=== PATIENT | male | born 1950 | race Caucasian/White ===

== ENCOUNTER → 2016-04-13 | Outpatient (CLI) | payer BC | END | disposition home or self-care (01) | LOC: GMAL 10:36 | PROVIDERS: ATTEND Family Medicine | DX: Z12.5 Encounter for screening for malignant neoplasm of prostate (principal) ==

== ENCOUNTER → 2018-01-01 | Outpatient (CLI) | payer MEDICARE, OTHER | LOC: GMAL 14:37 | PROVIDERS: ATTEND Family Medicine | DX: D51.3 Other dietary vitamin B12 deficiency anemia (principal); R53.83 Other fatigue; E55.9 Vitamin D deficiency, unspecified ==

== ENCOUNTER 2019-05-19 15:18 | Emergency (ER) | payer MEDICARE, OTHER ==
[2019-05-19] MEDS ORDERED: cefTRIAXone SODIUM 1 GM VIAL IM ONE (16:19)
[2019-05-19] MEDS ORDERED: CIPROFLOXACIN 500 MG TAB PO ONE (16:19)
[2019-05-19] MEDS ORDERED: LIDOCAINE 1% 2 ML VIAL INJ ONE (16:26)
--- NOTE | 2019-05-19 17:24 | CT ---
EXAM DESCRIPTION: Abdoment/Pelvis w/o Contrast: Computed Tomography. CLINICAL HISTORY: 69 years Male urinary frequency, uti, hx kidney stones COMPARISON: None. TECHNIQUE: Spiral-axial scans 2.5 x 2.5 mm intervals through the abdomen and pelvis without oral or IV contrast. Coronal and sagittal 2.0 mm reconstructions. Total Exam DLP: 1306 mGy-cm. This exam was performed according to our departmental CT dose-optimization program which includes automated exposure control, adjustment of the mA and/or kV according to patient size and/or use of iterative reconstruction technique; to reduce radiation dose to as low as reasonably achievable (ALARA). FINDINGS: Kidneys and Ureters: Multiple small stones, approximately 4, measuring 2 mm or less in the upper collecting system. 2 to 3 mm stones in the inferior collecting system. The largest stone measures 5.8 mm in the middle collecting system bilaterally no hydronephrosis. Perirenal thickening. Atherosclerotic calcifications. 1 cm cyst in the upper collecting system. Multiple stones 2 mm in diameter less in the upper and lower collecting systems. Largest measures 4.6 mm in the inferior collecting system is below the hilum. No obstruction or hydronephrosis. Cyst in the upper pole and lower pole. Lateral pararenal fascial thickening and minimal stranding. Bilateral ureters normal caliber and no radiodense stones. Mesentery: Perirenal strandy changes as described. No free fluid or free air. Pelvic Organs: Ureterovesical junctions are unremarkable. Bladder slightly contracted with wall thickening. No radiodense stones. Prostate gland is abutting the base of the urinary bladder measuring 5.6 x 4.2 cm. Lung bases and pleura: Negative. Liver, stomach, spleen, and adrenal glands: Unremarkable. Pancreas, Gallbladder, and Ducts: Negative. Aorta: Moderate atherosclerotic calcification with several levels of lumen and wall calcifications. Small Bowel: Unremarkable. Terminal Ileum/Cecum: Negative including appendix. No inflammatory changes. Colon: No significant distention. Minimal fecal matter in the distal colon and sigmoid with minimal redundancy of the sigmoid. Spine and Bony Pelvis: Minimal spondylosis thoracic spine. No lytic or blastic lesions. Minimal sclerosis abutting the SI joint facets. Minimal subchondral sclerosis in the acetabula bilaterally and marginal spurs. Previous biopsy negative right iliac crest. Abdominal Wall/Back Soft Tissues: Small left fatty inguinal hernia not containing bowel. IMPRESSION: Multiple bilateral kidney stones. Most of the stones are 3 mm or less. Largest on the left 5.8 mm and largest on the right is 4.6 mm. No hydronephrosis bilaterally. No stones or hydroureter bilaterally. No radiodense stones in the urinary bladder. Prostate gland is enlarged impressing on the base of the urinary bladder. Electronically signed by: Korey Hoover MD 05/19/2019 5:23 PM CDT
[2019-05-19 18:47] VITALS: O2SAT 94
--- NOTE | 2019-05-19 18:49 | ED.PDOC ---
History of Present Illness - General Chief Complaint: Problem Stated Complaint: "trouble urinating" Time Seen by Provider: 05/19/19 15:26 Source: patient Exam Limitations: no limitations - History of Present Illness Initial Comments: The patient is a 69-year-old male presenting to the emergency room secondary to urinary frequency and dysuria along with some mild generalized body aches and low-grade fevers for the last 3 or 4 days. He does have known BPH and does take Flomax. No chest pain or shortness of breath. No edema. No history of renal failure though he does have a history of kidney stones in the past. No syncope or near syncope. Vital signs are reassuring. Timing/Duration: other - 4 days Severity: moderate Improving Factors: nothing Worsening Factors: nothing Associated Symptoms: fever/chills, malaise Allergies/Adverse Reactions: Allergies SHIRA Inhibitors Allergy (Verified 05/19/19 15:36) Home Medications: Ambulatory Orders Amlodipine Besylate 10 mg PO DAILY 05/19/19 Aspirin [Aspirin EC] 81 mg PO DAILY 05/19/19 Carvedilol 3.125 mg PO BID 05/19/19 Cephalexin Monohydrate [Keflex] 500 mg PO Q8H #45 cap 05/19/19 Choline Fenofibrate [Fenofibric Acid Dr] 1 tablet PO DAILY 05/19/19 Ciprofloxacin [Cipro] 500 mg PO BID #60 tab 05/19/19 Clopidogrel Bisulfate [Plavix] 1 tablet PO DAILY 05/19/19 Glipizide 1 tablet PO BID 05/19/19 Losartan Potassium 50 mg PO BID 05/19/19 Potassium Chloride [K-Tab] 10 meq PO DAILY 05/19/19 Saxagliptin HCl [Onglyza] 5 mg PO DAILY 05/19/19 Simvastatin 8 mg PO BEDTIME 05/19/19 Tamsulosin [Flomax] 2 tablet PO DAILY 05/19/19 metFORMIN HCL [Glucophage] 1,000 mg PO BID 05/19/19 Review of Systems - Review of Systems Constitutional: States: fever, malaise EENTM: States: no symptoms reported Respiratory: States: no symptoms reported Cardiology: States: no symptoms reported Gastrointestinal/Abdominal: States: no symptoms reported Genitourinary: States: dysuria, frequency Musculoskeletal: States: no symptoms reported Skin: States: no symptoms reported Neurological: States: no symptoms reported Endocrine: States: no symptoms reported All other Systems: No Change from Baseline Past Medical History (General) - Patient Medical History Hx of COPD: Yes Hx Congestive Heart Failure: Yes Hx Hypertension: Yes Surgical History: coronary bypass surgery - Vaccination History Hx Tetanus, Diphtheria Vaccination: Yes Hx Influenza Vaccination: Yes Hx Pneumococcal Vaccination: No - Social History Hx Alcohol Use: Yes - Activities of Daily Living Hospice Agency (if applicable):: None - Female History Patient is a Female of Child Bearing Age (10 -59 yrs old): No Patient : No - Triage Comment ED Triage Comment: pt voices trouble urinating the past 4-5 days. has hx of kidney stones Family Medical History - Family History Mother Family History: Unknown Physical Exam - Physical Exam General Appearance: Alert, No apparent distress Eye Exam: bilateral normal Ears, Nose, Throat: hearing grossly normal, normal ENT inspection, normal pharynx Neck: full range of motion, supple Respiratory: lungs clear, normal breath sounds, no respiratory distress, no accessory muscle use Cardiovascular/Chest: normal peripheral pulses, regular rate, rhythm, no edema Peripheral Pulses: radial,right: 2+, radial,left: 2+ Gastrointestinal/Abdominal: non tender, soft Rectal Exam: deferred Back Exam: no CVA tenderness, no vertebral tenderness Extremity: normal range of motion, non-tender, normal inspection, no pedal edema, normal capillary refill 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 as tested, alert, normal mood/affect, oriented x 3 Skin Exam: normal color Comments: Vital Signs - 24 hr 05/19/19 05/19/19 05/19/19 15:34 15:42 16:30 Temperature 98.6 F 99.8 F H Pulse Rate [ 75 75 82 brachial] Respiratory 18 18 18 Rate Blood Pressure 153/73 133/70 [Left Arm] O2 Sat by Pulse 93 L 93 L Oximetry 05/19/19 05/19/19 17:00 18:00 Temperature 99.8 F H 100.2 F H Pulse Rate [ 78 84 brachial] Respiratory 18 18 Rate Blood Pressure 147/61 144/62 [Left Arm] O2 Sat by Pulse 94 L 94 L Oximetry Progress - Progress Progress: 05/19/19 18:49 The patient is a 69-year-old male presented emergency room with symptoms of prostatitis. The patient is going to be placed on a month worth of ciprofloxacin and 2 weeks worth of Keflex. Urine is being cultured. Vital signs are stable at this time. Obviously if the patient is worsening in any way that he needs to return to the emergency room. By ultrasound he is retaining approximately 60 cc of urine after urinating. This does not appear to be affecting his kidney function however if he gets to where he cannot urinate then a Stevens catheter will have to be placed. ER warnings are given. cuco nicole 747 - Results/Orders Results/Orders: CT scan of the abdomen pelvis shows multiple stones in the kidneys but no evidence of any obstructing ureteral stones. No obvious abscesses. See report for details. He does have an enlarged prostate. Laboratory Tests 05/19/19 05/19/19 05/19/19 15:47 15:50 15:50 WBC 10.5 RBC 4.02 L Hgb 12.4 L Hct 37.0 L MCV 92.2 MCH 30.8 MCHC 33.4 RDW 14.7 H Plt Count 196 MPV 10.0 Absolute Neuts (auto) 8.00 H Absolute Lymphs (auto) 1.50 Absolute Monos (auto) 0.80 Absolute Eos (auto) 0.20 Absolute Basos (auto) 0.10 Neutrophils % 76.2 Lymphocytes % 13.9 L Monocytes % 7.8 Eosinophils % 1.5 Basophils % 0.6 Sodium 135 Potassium 4.2 Chloride 101 Carbon Dioxide 24 Anion Gap 14.2 BUN 19 H Creatinine 1.13 BUN/Creatinine Ratio 16.8 Random Glucose 224 H Serum Osmolality 279.3 Calcium 9.3 Total Bilirubin 0.4 AST 15 ALT 13 Alkaline Phosphatase 41 L Serum Total Protein 7.0 Albumin 3.4 Globulin 3.6 H Albumin/Globulin Ratio 0.9 L Total PSA Urine Color Yellow Urine Appearance Clear Urine pH 5.5 Ur Specific [place] >= 1.030 Urine Protein >=300 H Urine Glucose (UA) 100 H Urine Ketones Negative Urine Blood Negative Urine Nitrite Negative Urine Bilirubin Negative Urine Urobilinogen 0.2 Ur Leukocyte Esterase Trace H Urine RBC 1-3 Urine WBC 5-10 H Ur Epithelial Cells 1-3 Urine Bacteria 2+ H Urine Mucus Large 05/19/19 15:50 WBC RBC Hgb Hct MCV MCH MCHC RDW Plt Count MPV Absolute Neuts (auto) Absolute Lymphs (auto) Absolute Monos (auto) Absolute Eos (auto) Absolute Basos (auto) Neutrophils % Lymphocytes % Monocytes % Eosinophils % Basophils % Sodium Potassium Chloride Carbon Dioxide Anion Gap BUN Creatinine BUN/Creatinine Ratio Random Glucose Serum Osmolality Calcium Total Bilirubin AST ALT Alkaline Phosphatase Serum Total Protein Albumin Globulin Albumin/Globulin Ratio Total PSA 51.49 H Urine Color Urine Appearance Urine pH Ur Specific [place] Urine Protein Urine Glucose (UA) Urine Ketones Urine Blood Urine Nitrite Urine Bilirubin Urine Urobilinogen Ur Leukocyte Esterase Urine RBC Urine WBC Ur Epithelial Cells Urine Bacteria Urine Mucus CT scan of abdomen pelvis show numerous small kidney stones but none obstructing the ureters. No significant hydronephrosis. Departure - Departure Clinical Impression: Prostatitis Qualifiers: Prostatitis type: acute Qualified Code(s): N41.0 - Acute prostatitis Disposition: Discharge to Home or Self Care Departure Forms: ED Discharge - Pt. Copy, Patient Portal Self Enrollment Instructions: Prostatitis (DC) Diet: diabetic diet Activity: increase activity as tolerated Referrals: Nav Solorio III, MD [Primary Care Provider] - 1-2 Weeks Prescriptions: Cephalexin Monohydrate [Keflex] 500 mg PO Q8H #45 cap Ciprofloxacin [Cipro] 500 mg PO BID #60 tab Home Medications: Ambulatory Orders Amlodipine Besylate 10 mg PO DAILY 05/19/19 Aspirin [Aspirin EC] 81 mg PO DAILY 05/19/19 Carvedilol 3.125 mg PO BID 05/19/19 Cephalexin Monohydrate [Keflex] 500 mg PO Q8H #45 cap 05/19/19 Choline Fenofibrate [Fenofibric Acid Dr] 1 tablet PO DAILY 05/19/19 Ciprofloxacin [Cipro] 500 mg PO BID #60 tab 05/19/19 Clopidogrel Bisulfate [Plavix] 1 tablet PO DAILY 05/19/19 Glipizide 1 tablet PO BID 05/19/19 Losartan Potassium 50 mg PO BID 05/19/19 Potassium Chloride [K-Tab] 10 meq PO DAILY 05/19/19 Saxagliptin HCl [Onglyza] 5 mg PO DAILY 05/19/19 Simvastatin 8 mg PO BEDTIME 05/19/19 Tamsulosin [Flomax] 2 tablet PO DAILY 05/19/19 metFORMIN HCL [Glucophage] 1,000 mg PO BID 05/19/19 Additional Instructions: The patient is a 69-year-old male presented emergency room with symptoms of prostatitis. The patient is going to be placed on a month worth of ciprofloxacin and 2 weeks worth of Keflex. Urine is being cultured. Vital signs are stable at this time. Obviously if the patient is worsening in any way that he needs to return to the emergency room. By ultrasound he is retaining approximately 60 cc of urine after urinating. This does not appear to be affecting his kidney function however if he gets to where he cannot urinate then a Stevens catheter will have to be placed. The patient should hold his cholesterol medications while taking the antibiotics. ER warnings are given.
[2019-05-19 19:09] VITALS: BP 139/76; TEMP 99.7
== END 2019-05-19 19:09 | disposition home or self-care (01) ==
LOC: ER 15:18
DX: N41.0 Acute prostatitis (principal); N20.0 Calculus of kidney; N40.1 Benign prostatic hyperplasia with lower urinary tract symptoms; J44.9 Chronic obstructive pulmonary disease, unspecified; I50.9 Heart failure, unspecified; I11.0 Hypertensive heart disease with heart failure; Z95.1 Presence of aortocoronary bypass graft; Z79.899 Other long term (current) drug therapy; Z79.82 Long term (current) use of aspirin; Z79.84 Long term (current) use of oral hypoglycemic drugs; Z88.8 Allergy status to other drugs, medicaments and biological substances
CPT/HCPCS: 36415; 74176; 80053; 81001; 85025; 87040; G0103; J0696

== ENCOUNTER → 2019-06-27 | Outpatient (CLI) | payer MEDICARE, OTHER | LOC: GMAL 10:38 | PROVIDERS: ATTEND Family Medicine | DX: D51.3 Other dietary vitamin B12 deficiency anemia (principal); E11.9 Type 2 diabetes mellitus without complications; E55.9 Vitamin D deficiency, unspecified; E78.49 Other hyperlipidemia; R53.83 Other fatigue; Z12.5 Encounter for screening for malignant neoplasm of prostate; Z79.899 Other long term (current) drug therapy | CPT/HCPCS: 82306; 82607; 84443; G0103 ==

== ENCOUNTER 2020-02-07 20:58 | Emergency (ER) | payer MEDICARE, OTHER ==
[2020-02-07] MEDS ORDERED: IPRATROPIUM/ALBUTEROL 3 ML VIAL NEB ONE ×4 (21:00→21:30)
[2020-02-07] MEDS ORDERED: ALBUTEROL SULFATE 2.5 MG/3 ML VIAL NEB ONE (21:11)
[2020-02-07] MEDS ORDERED: MAGNESIUM SULFATE PREMIX 2GM 50 ML IVPB ONE (21:14)
[2020-02-07] MEDS ORDERED: FUROSEMIDE INJ 40 MG/4 ML VIAL ONE (21:18)
[2020-02-07] MEDS ORDERED: MAGNESIUM SULFATE PREMIX 2GM 2 GM in PREMIX BAG 1 BAG IVPB ONE (21:20)
[2020-02-07] MEDS ORDERED: methylPREDNISolone SODIUM SUC 125 MG/2 ML VIAL IV ONE (21:20)
[2020-02-07] MEDS ORDERED: SODIUM CHL 0.9% 50ML VIAL 3 ML, ALBUTEROL SULFATE NEBS 15 MG NEB ONE ×2 (21:21)
[2020-02-07] MEDS ORDERED: IPRATROPIUM BROMIDE NEBS 0.5 MG/2.5 ML VIAL NEB ONE (21:21)
[2020-02-07] MEDS ORDERED: ALBUTEROL SULFATE NEBS 15 MG, IPRATROPIUM BROMIDE NEBS 0.5 MG NEB ONE ×2 (21:21)
[2020-02-07] MEDS ORDERED: SUCCINYLCHOLINE CHLORIDE 200 MG/10 ML VIAL ONE (21:36)
[2020-02-07] MEDS ORDERED: SODIUM CHLORIDE 0.9% 1000ML 1,000 ML ONE ×2 (21:42→22:49)
[2020-02-07] MEDS ORDERED: ETOMIDATE INJECTION 2 MG/ML 20ML VIAL IV ONE (21:46)
[2020-02-07] MEDS ORDERED: fentaNYL CITRATE INJ 50 MCG/ML 2 ML AMP IV ONE (21:49)
[2020-02-07] MEDS ORDERED: MIDAZOLAM INJ 5 MG/5 ML VIAL ONE (21:50)
--- NOTE | 2020-02-07 22:08 | RAD ---
EXAM DESCRIPTION: Chest,1 View CLINICAL HISTORY: SOB COMPARISON: Report from 05/21/2018 FINDINGS: Single frontal radiograph view of the chest. Cardiomediastinal silhouette: Prior median sternotomy. Cardiomegaly. Lungs: Pulmonary vascular congestion. Bilateral interstitial opacities. No pneumothorax. Possible small bilateral pleural effusions. Bones: Degenerative change of the spine and shoulders. Upper abdomen: No abnormality identified. IMPRESSION: 1. Cardiomegaly with interstitial pulmonary edema pattern. Electronically signed by: Maximo Jensen 02/07/2020 10:07 PM [facility]
--- NOTE | 2020-02-07 22:10 | RAD ---
EXAM DESCRIPTION: Chest,1 View CLINICAL HISTORY: ET Tube placement COMPARISON: 02/07/2020 FINDINGS: Single frontal view of the chest. Tubes and lines: Endotracheal tube with tip 5 cm above the carolann. Leads overlie the chest. Cardiomediastinal silhouette: Stable Lungs: Pulmonary vascular congestion with bilateral interstitial opacities. No pneumothorax. Costophrenic angles are not visualized on this study. Bones: Stable. Upper abdomen: Stable. IMPRESSION: 1. Endotracheal tube with tip in appropriate position 5 cm above the carolann. Stable appearance of the chest otherwise. Electronically signed by: Maximo Jensen 02/07/2020 10:08 PM [facility] [employer]
--- NOTE | 2020-02-07 22:14 | ED.PDOC ---
History of Present Illness - General Time Seen by Provider: 02/07/20 21:18 Source: patient, family - - History of Present Illness Initial Comments: PATIENT FEELING POORLY FOR SEVERAL DAYS WITH MILD RESPIRATORY SYMPTOMS, BUT DID NOT ALERT HIS TO SYMPTOMS UNTIL THIS EVENING WHEN HE DEVELOPED RAPIDLY PROGRESSIVE SHORTNESS OF BREATH. PATIENT W/ HISTORY OF ASCAD, COPD, HTN AND DM. S/P CABG 1994, NO CARDIAC ISSUES SINCE. CONTINUES TO SMOKE 2 PPD HOWEVER. RELATED THAT HE HAD NEVER HAD SYMPTOMS THIS SEVERE BEFORE. Timing/Duration: 1 week Severity: severe Activities at Onset: none Possible Cause: smoke exposure Improving Factors: nothing Worsening Factors: nothing Associated Symptoms: denies symptoms Allergies/Adverse Reactions: Allergies SHIRA Inhibitors Allergy (Verified 05/19/19 15:36) Home Medications: Ambulatory Orders Amlodipine Besylate 10 mg PO DAILY 05/19/19 Aspirin [Aspirin EC] 81 mg PO DAILY 05/19/19 Carvedilol 3.125 mg PO BID 05/19/19 Cephalexin Monohydrate [Keflex] 500 mg PO Q8H #45 cap 05/19/19 Choline Fenofibrate [Fenofibric Acid Dr] 1 tablet PO DAILY 05/19/19 Ciprofloxacin [Cipro] 500 mg PO BID #60 tab 05/19/19 Clopidogrel Bisulfate [Plavix] 1 tablet PO DAILY 05/19/19 Glipizide 1 tablet PO BID 05/19/19 Losartan Potassium 50 mg PO BID 05/19/19 Potassium Chloride [K-Tab] 10 meq PO DAILY 05/19/19 Saxagliptin HCl [Onglyza] 5 mg PO DAILY 05/19/19 Simvastatin 8 mg PO BEDTIME 05/19/19 Tamsulosin [Flomax] 2 tablet PO DAILY 05/19/19 metFORMIN HCL [Glucophage] 1,000 mg PO BID 05/19/19 Review of Systems - Review of Systems Unable to Obtain Due To: intubated, clinical condition Past Medical History (General) - Patient Medical History Hx of COPD: Yes Hx Congestive Heart Failure: Yes Hx Hypertension: Yes - Vaccination History Hx Tetanus, Diphtheria Vaccination: Yes Hx Influenza Vaccination: Yes Hx Pneumococcal Vaccination: No - Social History Hx Alcohol Use: Yes - Female History Patient : No Family Medical History - Family History Mother Family History: Unknown Physical Exam - Physical Exam General Appearance: Anxious, Frail, Obvious distress, Ill Appearing, Restless Eyes, Ears, Nose, Throat Exam: PERRL/EOMI, normal ENT inspection, TMs normal Neck: non-tender, full range of motion, supple Respiratory: respiratory distress, decreased breath sounds, accessory muscle use - MARKED, wheezing - EXPIRATORY Cardiovascular/Chest: normal peripheral pulses, no edema, no JVD, no murmur, tachycardia Gastrointestinal/Abdominal: normal bowel sounds, non tender, soft, no organomegaly Extremity: non-tender, normal inspection, no pedal edema, no calf tenderness Neurologic: alert Skin Exam: normal color, warm/dry Progress - Progress Progress: 02/07/20 22:16 DISCUSSED WITH THE PATIENT WHETHER HE WANTED TO BE INTUBATED AND THAT HE HAD IMPENDING RESPIRATORY FAILURE, HE UNDERSTOOD, VOICED UNDERSTANDING AND STATED HE DID WANT TO BE INTUBATED. PATIENT WITH RAPIDLY PROGRESSIVE RESPIRATORY FAILURE, APPREARING AT THIS TIME TO BE PRIMARILY DUE TO SEVERE EXACERBATION OF COPD, HOWEVER SOME HEART FAILURE COM PONENT IS POSSIBLE. 02/07/20 23:47 PATIENT FAMILY UPDATED MULTIPLE TIMES. [facility] CONTACTED OVER A PERIOD OF OVER AN HOUR, TENTATIVE BEDS FOUND AT [facility] IN [place] AND [facility] IN . FAMILY IS OK WITH EITHER, 02/07/20 23:58 ABG ON ER ADMIT: 7.14 85/82 POST INTUBATION: 7.27 CO2 54 O2 [address] FRITZ, MEDICINE WHO IS ACCEPTING, ALSO GIVEN TO ICU ATTENDING AND ICU APC. FAMILY ADVISED THAT [facility] IS ACCEPTING FACILITY. - EKG/XRAY/CT EKG: no ST T wave changes Xray Comments: INFILTRATE IN RIGHT MID LUNG FIELD. FLUID IN MINOR FISSURE. Procedures - Intubation Tube Size (cm): 7.5 Medications: Succinylcholine, Versed Breath Sounds after Intubation: equal Intubation Complications: no complications Post Intubation Xray: Yes Progress/Xray Impression: GOOD TUBE PLACEMENT CONFIRMED ON CHEST XRAY Departure - Departure Clinical Impression: COPD exacerbation Respiratory failure Qualifiers: Chronicity: acute Respiratory failure complication: hypoxia and hypercapnia Qualified Code(s): J96.01 - Acute respiratory failure with hypoxia Time of Disposition: 23:47 Disposition: Transfer to Hospital Departure Forms: ED Discharge - Pt. Copy, Patient Portal Self Enrollment Referrals: Nav Solorio III, MD [Primary Care Provider] - 1-2 Weeks Home Medications: Ambulatory Orders Amlodipine Besylate 10 mg PO DAILY 05/19/19 Aspirin [Aspirin EC] 81 mg PO DAILY 05/19/19 Carvedilol 3.125 mg PO BID 05/19/19 Cephalexin Monohydrate [Keflex] 500 mg PO Q8H #45 cap 05/19/19 Choline Fenofibrate [Fenofibric Acid Dr] 1 tablet PO DAILY 05/19/19 Ciprofloxacin [Cipro] 500 mg PO BID #60 tab 05/19/19 Clopidogrel Bisulfate [Plavix] 1 tablet PO DAILY 05/19/19 Glipizide 1 tablet PO BID 05/19/19 Losartan Potassium 50 mg PO BID 05/19/19 Potassium Chloride [K-Tab] 10 meq PO DAILY 05/19/19 Saxagliptin HCl [Onglyza] 5 mg PO DAILY 05/19/19 Simvastatin 8 mg PO BEDTIME 05/19/19 Tamsulosin [Flomax] 2 tablet PO DAILY 05/19/19 metFORMIN HCL [Glucophage] 1,000 mg PO BID 05/19/19 Critical Care Note - Critical Care Note Total Time (mins): 120 Comments: PROLONGED PERIOD OF TIME SPENT PERSONALLY CALLING OTHER HOSPITALS IN ATTEMPTS TO FIND ICU/ CRITICAL CARE / PULMONARY MEDICINE SPECIALTY CARE FOR PATIENT THROUGHOUT [place]. EVENTUALLY AN ICE BED WAS FOUND IN THE [facility]. CONSULTATIONS VIA PHONE CARRIED OUT, PATIENT ACCEPTED, FAMILY PERSONALLY COUNSELED 4 TIMES AT BEDSIDE AND WAITING ROOM AND KEPT AWARE OF PROGRESS.
[2020-02-07] MEDS ORDERED: fentaNYL CITRATE INJ 50 MCG/ML 2 ML AMP ONE (22:47)
[2020-02-07] MEDS ORDERED: SODIUM CHLORIDE 0.9% 100ML 100 ML IVPB ONE (22:48)
[2020-02-07] MEDS ORDERED: VECURONIUM BROMIDE 10 MG VIAL IV ONE (23:28)
[2020-02-07] MEDS ORDERED: WATER FOR INJ 10 ML VIAL INJ ONE (23:29)
--- NOTE | 2020-02-07 23:29 | RAD ---
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 Prior films were compared. Endotracheal tube is in good position at approximately 6 cm from the carolann. There has been interval placement of a nasogastric tube within the stomach with at the lateral port within the fundus. The cardiomediastinal silhouette demonstrate to be unremarkable. The heart is not enlarged. The thoracic aorta demonstrate minimal intimal complication. Sternotomy wires and pericardiac clips suggest previous CABG. Again is noted the presence of increase interstitial pulmonary markings perhaps perhaps suggesting interstitial pulmonary edema and/or superimposed chronic lung changes. IMPRESSION: NASOGASTRIC TUBE IN GOOD POSITION. ENDOTRACHEAL TUBE UNCHANGED. STATUS POST CABG. INCREASED INTERSTITIAL PULMONARY MARKINGS SIMILAR TO PRIOR STUDY. Electronically signed by: Nav Cardona MD 02/07/2020 11:28 PM SENIOR SECURITY ENGINEER
[2020-02-08] MEDS ORDERED: ALBUTEROL SULFATE 2.5 MG/3 ML VIAL NEB ONE (01:36)
[2020-02-08] MEDS ORDERED: MIDAZOLAM INJ 5 MG/5 ML VIAL ONE (01:42)
[2020-02-08] MEDS ORDERED: FUROSEMIDE INJ 40 MG/4 ML VIAL IV ONE (04:04)
[2020-02-08 05:30] VITALS: BP 113/63; TEMP 97.5; O2SAT 99
== END 2020-02-08 02:45 | disposition short-term general hospital (02) ==
LOC: ER 20:58
DX: J44.1 Chronic obstructive pulmonary disease with (acute) exacerbation (principal); J96.02 Acute respiratory failure with hypercapnia; J96.01 Acute respiratory failure with hypoxia; I50.9 Heart failure, unspecified; I11.0 Hypertensive heart disease with heart failure; F17.210 Nicotine dependence, cigarettes, uncomplicated; E11.9 Type 2 diabetes mellitus without complications; I25.10 Atherosclerotic heart disease of native coronary artery without angina pectoris; Z20.828 Contact with and (suspected) exposure to other viral communicable diseases; Z79.02 Long term (current) use of antithrombotics/antiplatelets; Z79.82 Long term (current) use of aspirin; Z79.899 Other long term (current) drug therapy; Z88.8 Allergy status to other drugs, medicaments and biological substances; Z95.1 Presence of aortocoronary bypass graft
CPT/HCPCS: 31500; 36600; 71045; 80053; 82803; 82805; 83735; 83880; 84484; 85025; 87635; 93005; 94002; 94003; 94640; 94770; A4216; J0330; J1940; J2250; J2930; J3010; J3475; J7030; J7050; J7611; J7620

== ENCOUNTER → 2020-03-12 | Outpatient (CLI) | payer MEDICARE, OTHER | LOC: GMAL 12:23 | PROVIDERS: ATTEND Family Medicine | DX: D51.3 Other dietary vitamin B12 deficiency anemia (principal); E55.9 Vitamin D deficiency, unspecified; R53.83 Other fatigue; E11.9 Type 2 diabetes mellitus without complications; Z79.899 Other long term (current) drug therapy; E78.49 Other hyperlipidemia ==